=== PATIENT | male | born 1985 | race Two or more races ===

== ENCOUNTER 2016-09-27 01:29 | Emergency (ER) | payer SELFPAY ==
[~2016-09-27] VITALS: Ht 170.2 cm; Wt 72.0 kg
[2016-09-27 07:04] VITALS: BP 111/98
== END 2016-09-27 07:06 | disposition home or self-care (01) ==
LOC: ER 01:29
DX: J30.9 Allergic rhinitis, unspecified (principal); T78.40XA Allergy, unspecified, initial encounter; X58.XXXA Exposure to other specified factors, initial encounter; F12.10 Cannabis abuse, uncomplicated
CPT/HCPCS: 99283